=== PATIENT | female | born 1985 | race African-American/Black ===

== ENCOUNTER 2019-03-02 23:38 | Emergency (ER) | payer BC ==
[~2019-03-02] VITALS: Ht 160 cm; Wt 122.5 kg
--- NOTE | 2019-03-03 00:58 | PHYS DOC ---
Past Medical History Past Medical History: No Pertinent History Past Surgical History: , Tubal ligation Additional Information: Current ED smoker. 3/4pack/day Alcohol Use: None Drug Use: None Adult General Chief Complaint Chief Complaint: HEADACHE HPI HPI Patient is a 33 year old F that presents to the ED with a CC of Headache. Onset: 3 days ago. Location: left temporal region. Character: constant dull with intermittent stabbing pain. Associated symptoms: nausea, photophobia, phonophobia, blurry vision. Pt denies fevers chills, LOC, trauma, CP, SOB, neck stiffness. Pt states her left temporal region is tender. Pt denies any medical hx or taking medications. Review of Systems Review of Systems Constitutional: Denies fever or chills Eyes: Denies redness or eye pain, reports blurry vision, sensitive to light HENT: Denies nasal congestion or sore throat Respiratory: Denies cough or shortness of breath Cardiovascular: Denies chest pain or palpitations GI: Denies abdominal pain, reports nausea, denies vomiting : Denies dysuria or hematuria Musculoskeletal: Denies back pain or joint pain Integument: Denies rash or skin lesions Neurologic: Reports headache, denies focal weakness or sensory changes, Complete systems were reviewed and found to be within normal limits, except as documented in this note. Current Medications Current Medications Current Medications Medications (Trade) Dose Ordered Sig/Abdifatah Start Time Stop Time Status Last Admin Dose Admin Dexamethasone Sodium Phosphate (Decadron) 10 mg 1X ONCE 03/03/19 01:00 03/03/19 01:01 DC 03/03/19 01:16 10 MG Diphenhydramine HCl (Benadryl) 50 mg 1X ONCE 03/03/19 01:00 03/03/19 01:01 DC 03/03/19 01:17 50 MG Ketorolac Tromethamine (Toradol 15mg Vial) 15 mg 1X ONCE 03/03/19 01:00 03/03/19 01:01 DC 03/03/19 01:15 15 MG Metoclopramide HCl (Reglan Vial) 10 mg 1X ONCE 03/03/19 01:00 03/03/19 01:01 DC 03/03/19 01:15 10 MG Allergies Allergies Allergies Coded Allergies Type Severity Reaction Last Updated Verified No Known Drug Allergies 03/03/19 No Physical Exam Physical Exam Constitutional: Well developed, well nourished, no acute distress, non-toxic appearance HENT: Normocephalic, atraumatic, oropharynx moist Eyes: PERRL, EOMI, conjunctiva normal, no discharge, photophobia, phonophobia Neck: Normal range of motion, no tenderness, supple Cardiovascular: Heart rate normal, regular rhythm Lungs & Thorax: Bilateral breath sounds clear to auscultation, no wheezing Abdomen: Soft, no tenderness Skin: Warm, dry, no erythema, no rash Back: No tenderness, no CVA tenderness Extremities: No tenderness, ROM intact, no edema Neurologic: Alert and oriented X 3, normal motor function, normal sensory function, no focal deficits noted, no meningeal signs, Psychologic: Affect normal, judgement normal, mood normal Current Patient Data Vital Signs Vital Signs Date Time Temp Pulse Resp B/P (MAP) Pulse Ox O2 Delivery O2 Flow Rate FiO2 03/02/19 23:45 98.5 72 12 139/81 (100) 98 Room Air 98.5 Lab Values Laboratory Tests Test 03/02/19 23:56 POC Urine HCG, Qualitative Hcg negative (Negative) EKG EKG [] Radiology/Procedures Radiology/Procedures [] Course & Med Decision Making Course & Med Decision Making Pertinent Labs and Imaging studies reviewed. (See chart for details) [] Dragon Disclaimer Dragon Disclaimer This electronic medical record was generated, in whole or in part, using a voice recognition dictation system. Departure Departure Impression: Primary Impression: Headache Disposition: 01 HOME, SELF-CARE Condition: STABLE Referrals: NO PCP (PCP) BOBBY DORANTES MD Patient Instructions: General Headache Without Cause, [id number], Headache, FAQs Scripts Butalb/Acetaminophen/Caffeine ([id number] [id number]) 1 Each Tablet 1 EACH PO Q6HRS PRN for HEADACHE, #14 TAB Prov: DONNA CUBA DO 03/03/19 Ondansetron (ONDANSETRON ODT) 4 Mg Tab.rapdis 1 TAB PO PRN Q6-8HRS PRN for NAUSEA, #16 TAB Prov: DONNA CUBA DO 03/03/19 Problem Qualifiers Primary Impression: Headache Headache type: unspecified Headache chronicity pattern: acute headache Intractability: intractable Qualified Codes: R51 - Headache DONNA CUBA DO Mar 03, 2019 00:58
[2019-03-03] MEDS: KETOROLAC 15 MG/ML VIAL. IVP ONE (01:15)
[2019-03-03] MEDS: METOCLOPRAMIDE HCL 10 MG/2 ML VIAL. IVP ONE (01:15)
[2019-03-03] MEDS: DEXAMETHASONE SOD PHOS 4 MG/ML VIAL IVP ONE (01:16)
[2019-03-03] MEDS: diphenhydrAMINE 50 MG/ML VIAL IVP ONE (01:17)
[2019-03-03] MEDS ORDERED: ONDA4TAB12 PO (02:18)
[2019-03-03] MEDS ORDERED: BUTA1TAB23 PO (02:18)
[2019-03-03 02:25] VITALS: BP 124/69
== END 2019-03-03 02:38 | disposition home or self-care (01) ==
LOC: ER 23:38
DX: R51 Headache (principal); R11.0 Nausea; H53.8 Other visual disturbances; H53.149 Visual discomfort, unspecified; F17.200 Nicotine dependence, unspecified, uncomplicated; Z98.51 Tubal ligation status; Z98.890 Other specified postprocedural states
CPT/HCPCS: 81025; 96374; 96375; 99284; J1100; J1200; J1885; J2765